=== PATIENT | female | born 1995 | race Caucasian/White ===

== ENCOUNTER 2017-08-01 13:05 | Emergency (ER) | payer OTHER ==
[2017-08-01] MEDS ORDERED: ACETAMINOPHEN TAB 500 MG TAB PO STA (15:15)
[2017-08-01] MEDS ORDERED: SODIUM CHLORIDE 0.9% 2,000 ML IV ONE (15:16)
--- NOTE | 2017-08-01 15:23 | ED ---
Abdominal Pain HPI - General Chief Complaint: Abdominal Pain Stated Complaint: 19 weeks 4 days /Cramping Time Seen by Provider: 08/01/17 14:48 Source: patient Mode of arrival: ambulatory Limitations: no limitations - History of Present Illness Initial Comments: Patient is a 21-year-old female, G 10 P4 who presents with a chief complaint of abdominal pain that started today. Patient states that yesterday she was helping put her friend's kids to bed and lifted one of them as he would not go to bed on his own. Patient states that she is not supposed to lift more than 25 pounds. Patient states that she is a high-risk patient for early term labor. Patient describes her pain as sharp and cramping. The intensity is waxing and waning intermittently. Patient denies any vaginal bleeding though she states that her panty liner has been "moist". Patient does not identify any aggravating or alleviating factors. Timing is constant - Related Data Home Medications Medication Instructions Recorded Confirmed No Known Home Medications [No 08/01/17 08/01/17 Known Home Medications] Allergies Allergy/AdvReac Type Severity Reaction Status Date / Time morphine Allergy Rash/Hives Verified 08/01/17 14:50 Review of Systems ROS Statement: Those systems with pertinent positive or pertinent negative responses have been documented in the HPI. ROS Other: All systems not noted in ROS Statement are negative. Constitutional: Denies: fever, chills Eyes: Denies: vision change ENT: Denies: ear pain, throat pain Respiratory: Denies: dyspnea Cardiovascular: Denies: chest pain Endocrine: Denies: fatigue Gastrointestinal: Reports: abdominal pain. Denies: nausea, vomiting Genitourinary: Denies: dysuria, discharge Musculoskeletal: Reports: back pain Skin: Denies: rash, lesions Neurological: Denies: headache Past Medical History Past Medical History: No Reported History History of Any Multi-Drug Resistant Organisms: None Reported Past Surgical History: Section Past Psychological History: Anxiety, Depression, PTSD Smoking Status: Former smoker Past Alcohol Use History: None Reported Past Drug Use History: None Reported General Exam Limitations: no limitations General appearance: alert, in no apparent distress Head exam: Present: atraumatic, normocephalic Eye exam: Present: normal appearance, PERRL ENT exam: Present: normal exam Neck exam: Present: normal inspection Respiratory exam: Present: normal lung sounds bilaterally Cardiovascular Exam: Present: regular rate, normal rhythm, normal heart sounds GI/Abdominal exam: Present: soft, tenderness (Patient has tenderness to palpation in the epigastric region, and left upper quadrant. Abdominal exam is limited secondary to morbid obesity.). Absent: distended Rectal exam: Present: deferred Extremities exam: Present: normal inspection Back exam: Present: CVA tenderness (R) Neurological exam: Present: alert, oriented X3 Psychiatric exam: Present: normal affect, normal mood Skin exam: Present: warm, dry, intact Course Vital Signs 08/01/17 13:35 Temperature 99.3 F Pulse Rate 115 H Respiratory 20 Rate Blood Pressure 137/93 O2 Sat by Pulse 99 Oximetry Medical Decision Making - Medical Decision Making Patient is a 21-year-old GTNP for presents with a chief complaint of abdominal pain. Patient states that she is 19 weeks 4 days . She denies vaginal bleeding, or vaginal discharge that she states that her pain has been moist, and she is worried that she is leaking fluid. Patient states that she lifted a child yesterday and her pain started after that, otherwise she cannot think of any inciting incident. She denies any trauma. Patient will be sent for a pelvic ultrasound. CBC, and complete metabolic panel will be sent along with a lipase. We will send a urinalysis. On initial evaluation, vital signs are stable. Patient is in no acute distress. 5:41 PM Patient is refusing EKG, and a dose of Tylenol because she "doesn't see the point". Patient was given 2 L of IV fluid. Laboratory evaluation of this patient is unremarkable. ultrasound shows a single intrauterine that is viable and consistent with 19 weeks and 4 days. Heart rate is 150 bpm. I discussed the results with the patient. I described that she may be having pain for several different reasons however there do not seem to be any life-threatening etiologies today. Patient states that she is noted the area and does not have primary care or OB follow-up. She was provided with contact information for both of these specialties. Currently, the patient remained stable, I discussed that she is able to use Tylenol and it is not teratogenic. I discussed proper dosing with her. At this time, all questions are answered the best my ability, patient is stable for discharge. She was instructed to follow-up with primary care, OB, or to return to the emergency department if her symptoms worsen or change in anyway. - Lab Data Result diagrams: 08/01/17 16:20 08/01/17 16:20 Lab Results 08/01/17 08/01/17 08/01/17 Range/Units 16:20 16:20 16:20 WBC 10.5 (3.8-10.6) k/uL RBC 3.97 (3.80-5.40) m/uL Hgb 10.3 L (11.4-16.0) gm/dL Hct 32.8 L (34.0-46.0) % MCV 82.7 (80.0-100.0) fL MCH 25.9 (25.0-35.0) pg MCHC 31.3 (31.0-37.0) g/dL RDW 16.6 H (11.5-15.5) % Plt Count 267 (150-450) k/uL Neutrophils % 74 % Lymphocytes % 20 % Monocytes % 4 % Eosinophils % 1 % Basophils % 0 % Neutrophils # 7.7 (1.3-7.7) k/uL Lymphocytes # 2.1 (1.0-4.8) k/uL Monocytes # 0.4 (0-1.0) k/uL Eosinophils # 0.1 (0-0.7) k/uL Basophils # 0.0 (0-0.2) k/uL Hypochromasia Moderate Anisocytosis Slight Sodium 138 (137-145) mmol/L Potassium 3.7 (3.5-5.1) mmol/L Chloride 108 H (98-107) mmol/L Carbon Dioxide 20 L (22-30) mmol/L Anion Gap 10 mmol/L BUN 3 L (7-17) mg/dL Creatinine 0.60 (0.52-1.04) mg/dL Est GFR (MDRD) Af Amer >60 (>60 ml/min/1.73 sqM) Est GFR (MDRD) Non-Af >60 (>60 ml/min/1.73 sqM) Glucose 96 (74-99) mg/dL Calcium 9.0 (8.4-10.2) mg/dL Total Bilirubin 0.2 (0.2-1.3) mg/dL AST 10 L (14-36) U/L ALT 24 (9-52) U/L Alkaline Phosphatase 105 (38-126) U/L Total Protein 6.3 (6.3-8.2) g/dL Albumin 3.1 L (3.5-5.0) g/dL Lipase 64 (23-300) U/L Urine Color Yellow Urine Appearance Cloudy H (Clear) Urine pH 6.0 (5.0-8.0) Ur Specific [place] 1.027 (1.001-1.035) Urine Protein 1+ H (Negative) Urine Glucose (UA) Negative (Negative) Urine Ketones 2+ H (Negative) Urine Blood Negative (Negative) Urine Nitrite Negative (Negative) Urine Bilirubin Negative (Negative) Urine Urobilinogen 2.0 (<2.0) mg/dL Ur Leukocyte Esterase Moderate H (Negative) Urine RBC 2 (0-5) /hpf Urine WBC 11 H (0-5) /hpf Ur Squamous Epith Cells 19 H (0-4) /hpf Urine Bacteria Rare H (None) /hpf Urine Mucus Many H (None) /hpf Disposition Clinical Impression: Abdominal pain affecting , Disposition: HOME SELF-CARE Condition: Good Instructions: Abdominal Pain in (ED) Referrals: Sylvia Browning MD [STAFF PHYSICIAN] - 1-2 days Jackie Murry DO [Doctor of Osteopathic Medicine] - 1-2 days Ana Luque DO [Doctor of Osteopathic Medicine] - 1-2 days Stephanie Newman DO [Doctor of Osteopathic Medicine] - 1-2 days Zeyad Salcido MD [STAFF PHYSICIAN] - 1-2 days Geovanny Hoff MD [REFERRING] - 1-2 days (Primary Care )
[2017-08-01 16:42] LABS: ALT 24 U/L (9-52); AST 10 U/L (14-36); Alkaline Phosphatase 105 U/L (38-126); Anion Gap 10 mmol/L; Blood Urea Nitrogen 3 mg/dL (7-17); Carbon Dioxide 20 mmol/L (22-30); Chloride 108 mmol/L (98-107); Glucose 96 mg/dL (74-99); Non-African American GFR(MDRD) >60 (>60 ml/min/1.73 sqM); Potassium 3.7 mmol/L (3.5-5.1); Sodium 138 mmol/L (137-145); Total Bilirubin 0.2 mg/dL (0.2-1.3); Total Protein 6.3 g/dL (6.3-8.2)
[2017-08-01 16:43] LABS: Anisocytosis Slight; Basophils % (A) 0 %; CH 25.2; CHCM 30.5; Eosinophils # (A) 0.1 k/uL (0-0.7); Eosinophils % (A) 1 %; HCT 32.8 % (34.0-46.0); HDW 3.06; HGB 10.3 gm/dL (11.4-16.0); Hypochromasia Moderate; Luc # (Auto) 0.12; Luc % (Auto) 1; Lymphocytes # (A) 2.1 k/uL (1.0-4.8); Lymphocytes % (A) 20 %; MCH 25.9 pg (25.0-35.0); MCHC 31.3 g/dL (31.0-37.0); MCV 82.7 fL (80.0-100.0); Mean Platelet Volume 8.6; Monocytes # (A) 0.4 k/uL (0-1.0); Monocytes % (A) 4 %; Neutrophils # (A) 7.7 k/uL (1.3-7.7); Neutrophils % (A) 74 %; RBC 3.97 m/uL (3.80-5.40); RDW 16.6 % (11.5-15.5); WBC 10.5 k/uL (3.8-10.6); WBC (Perox) 10.62
[2017-08-01 16:47] LABS: Appearance,Urine Cloudy (Clear); Bacteria,Urine Rare /hpf; Bilirubin,Urine Negative (Negative); Glucose,Urine (UA) Negative (Negative); Ketones,Urine 2+ (Negative); Leukocyte Esterase,Urine Moderate (Negative); Mucus,Urine Many /hpf; Nitrite,Urine Negative (Negative); Particle Count 23716; Protein,Urine 1+ (Negative); RBC,Urine 2 /hpf (0-5); Specific Gravity,Urine 1.027 (1.001-1.035); Squamous Epithelial Cell,Urine 19 /hpf (0-4); UA Billing (MACRO vs. MICRO) MICRO; WBC,Urine 11 /hpf (0-5)
--- NOTE | 2017-08-01 17:14 | US ---
EXAMINATION TYPE: US OB >= 14 wk fetus DATE OF EXAM: 08/01/2017 COMPARISON: None CLINICAL HISTORY: Pain; EC patient with abdominal and pelvic cramping x 2 days; TECHNIQUE: Transabdominal (TA) GESTATIONAL AGE / DATING Physician Established: Not yet established Dates by LMP: 03/17/2017 (19 weeks/4 days) EDC: 12/22/2017 Dates by First Scan: No previous this is first scan Dates by Current Scan: (19 weeks/5 days) EDC: 12/21/2017 Beta HCG (if available): Not available SURVEY IUP: Single PLACENTA: Posterior PREVIA: No Previa MARSHA: 12.1 cm Normal CERVICAL LENGTH (transabdominal: norm > 3.0cm): 3.3 cm BIOMETRY PRESENTATION: Breech LIE: Transverse with head maternal Right BPD: 4.5 cm 19 weeks / 4 days HC: 16.8 cm 19 weeks / 3 days AC: 14.5 cm 19 weeks / 6 days FL: 3.1 cm 19 weeks / 5 days ESTIMATED WEIGHT IN GRAMS: 309.8 grams ESTIMATED WEIGHT IN LBS/OZ: 0 lbs. 11.0 oz. WEIGHT PERCENTAGE BASED ON ESTABLISHED DATES: 55.1% HC/AC: 1.16 Normal FL/AC: 21.61 Normal HEART RATE: 150 bpm RHYTHM: Normal MATERNAL WALL MEASUREMENT: 3.6 cm from skin to anterior uterine wall (if exam limited due to body hab itus). IMPRESSION: SINGLE LIVE INTRAUTERINE WITH 150 BPM, CORRESPONDING TO 19 WEEKS/5 DAYS, WITH EDC: 12/21/19 18.
[2017-08-01 18:11] VITALS: BP 111/65; PULSE 81; RESP 18; TEMP 98.1
== END 2017-08-01 18:08 | disposition home or self-care (01) ==
LOC: EC 13:05
DX: O26.892 Other specified pregnancy related conditions, second trimester (principal); R10.9 Unspecified abdominal pain; O99.212 Obesity complicating pregnancy, second trimester; E66.01 Morbid (severe) obesity due to excess calories; Z68.43 Body mass index [BMI] 50.0-59.9, adult; Z87.891 Personal history of nicotine dependence; Z53.20 Procedure and treatment not carried out because of patient's decision for unspecified reasons; Z3A.19 19 weeks gestation of pregnancy; Z88.5 Allergy status to narcotic agent
CPT/HCPCS: 36415; 76805; 80053; 81001; 83690; 85025; 96360; 96361; 99284